=== PATIENT | male | born 2000 | race African-American/Black ===

== ENCOUNTER 2021-10-09 17:56 | Emergency (ER) | payer SELFPAY ==
[~2021-10-09] VITALS: Ht 165.1 cm; Wt 53.5 kg
[2021-10-09 18:01] VITALS: BP 133/81
--- NOTE | 2021-10-09 18:24 | NUR ---
PATIENT BIB [employer]. PATIENT EXAMINED BY DR. GARCES. PATIENT MEDICALLY CLEARED AND RELEASED IN CUSTODY IN STABLE CONDITION. ORIGINAL PRE-BOOK FORM GIVEN TO OFFICER CHANDLER.
--- NOTE | 2021-10-09 18:32 | NUR ---
PT SEEN AND CLEARED BY DR GARCES, NO NURSING INTERVENTIONS PROVIDED
== END 2021-10-09 18:32 ==
LOC: MED 17:56
DX: F31.9 Bipolar disorder, unspecified (principal); F20.9 Schizophrenia, unspecified; Z02.89 Encounter for other administrative examinations
CPT/HCPCS: 99283